=== PATIENT | female | born 1980 | race Caucasian/White ===

== ENCOUNTER 2018-08-05 09:20 | Day surgery (SDC) | payer BC, OTHER ==
--- NOTE | 2018-08-05 06:29 | PDGENHP ---
History and Physical - Chief Complaint RIGHT HIP PAIN - History of Present Illness Diagnosis: 1. Bilateral~Femoroacetabular impingement (CLEMENTE) Cam type~ 2. ~~Bilateral GT bursitis 3. 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 ~Juanaenjoys cycling, snowboarding, hiking, walking her dogs. Erica's~right~hip pain started August 2017, with~no~recalled trauma or injury ~(but did have sharp pain while walking down stairs that resolved within 24 hrs) , and with~no~previous complaints.~Juanadoes not have~a known history of hip dysplasia. Presentation today is of~anterior~right~hip pain deep insdie, occasionally on the lateral side (30%). ~The hip~does not~wake her~at night and~does not~click and catch on~her. Sitting~can be uncomfortable~for her.~Juanadoes not~ report suffering from lower back pain episodes. Juanahas~participated in physical therapy since March 2018~and~has not~ tried other conservative measures.~Celia~has not~received sufficient symptomatic improvement. Juanahas~utilized medication for pain management, including NSAID~and CBD lotion/gummies.~Juanahas used medication consistently for a 2 wk period, but stopped after it gave no improvement. Juanadoes have mild~issues with the~left~hip since May 2018, but not to the level that she would seek care.~~ Juanaunderstands that~celia~has a hip and pelvis problem which should be researched and wishes to get a better understanding of~her~hip status, followed by an establishment of a treatment strategy, hoping~celia~would be able to get back to~her~well being active life. History: Past medical history:~~ None which is relevant~ Relevant familial history:~HTN, HLD Past surgical history:~ No. Surgery Anesthesia Year Outcome 1 Oophrectomy General 2017 Good Juanadenies problematic issues with general anesthesia in the past. I have reviewed, verified and agree with the past medical, surgical, family and social history. Current Medications:~currently has no medications in their medication list. ALLERGIES:~has no allergies on file. Objective: Physical Examination: Juanais 5~feet~2~inches tall and weighs~162~Lbs. Shoe size~7. Juanais AAO x3; she~is well-nourished, in NAD. Skin is warm and dry. ~ Breathing is non-labored. ~CV with RRR by pulse. Abdomen is soft, NTND. Currently,~she~walks with a~normal~gait. Trendelenburg sign is~negative~and proprioception~is normal,~both~sides. She~presents~with no~signs of joint laxity.~Beightons Score:~0 Lower spine examination is~negative~for sciatic or femoral nerve irritation with negative~SLR &~femoral stretch tests. Range of motion of the spine is normal~for flexion, extension, and rotations,~with no~associated pain. Strength, Sensation and pulses are~normal -~bilaterally Ankles and knees exams are~normal~and~no~mal-alignment is evident.~ She~has~no leg length discrepancy. Thigh circumference is~symmetric~with no evidence for muscle atrophy~on both~ sides. Hip ROM (degrees): FL ER At 90~hip FL IR At 90~hip FL AB AD EX IR Neutral hip ER Neutral hip R 100 45 15 40 5 5 45 40 L 95 45 20 35 5 5 45 25 Specific hip and pelvis tests: Impingement Test AIDAN Roll Add. Longus R +++ +++ Negative Negative L Negative ++ Negative Negative Glut. Med ITB Posterior Imp R Negative 5/5 strength Negative 5/5 strength Negative L Negative 5/5 strength Negative 5/5 strength Negative Squeeze test measured~normal Bony Symphysis pubis is~pain free~to touch while concentric activity of the rectus abdominis, does not~produce pain at its insertion. Ilio Psos specific tests are~negative for pain during cycling for~both hips~and remarkable for non painful snap~R side HF has~no pain~both hips. No~capsule tenderness bilaterally Greater trochanteric burse is~minimally painful~on both hips. Piriformis tests: FAIR is~negative,~with no~local signs of neuritis related to sciatic nerve. SIJs examination is~normal~with~normal~AIDAN in relation and local tenderness. Hamstrings tests are~negative~tendinopathy both hips. On a daily basis, the following percentages reflect~Erica's overall total pain: Deep hip~(anterior):~70% Lateral (GT):~30% Imaging: Radiology studies which I~have personally reviewed, analyzed and measured are below: XR: AP of the hip and pelvis: Performed in a~good~technique Coccyx to pubic symphysis distance~1~cm. 0~degrees caudal/cephal [place]~Lines are preserved. Minimal~Pathological signs are seen in the Symphysis Pubis.~ Minimal~Pathological signs are seen at the Ischial~tuberosity. ~ Specific measurements show: NSA~ LCE Sourcil~Angle Sharp's angle Lat. Cam Lat. Pincer C.Over~sign Head~Coverage % ATDmm R 136 30 1 36 Neg Neg Neg 78% 21.0 L 138 33 1 39 Neg Neg Neg 79% 19.6 Pos. wall sign ISS NAD ~~Dysplasia Comments R Negative + 11.4~mm Negative L Negative + 11.2~mm Negative Sclerosis Sup. Lat. OA Cysts Joint Space-WBZ Joint Space-Medial R Negative Negative Negative 2.8~mm 3.0~mm L Negative Negative Negative 3.1~mm 2.8~mm X Table lateral: Anterior cam lesion is~seen~on both hips. Alpha Angle: ~ Right~63~degrees Left~68~degrees MRI shows:~07/01/18 R hip - Good cartilage quality, no significant acetabular cysts or edema, large labral tear Impression and plan:Garrett Maldonado~is a~37 y.o.~active female~suffering from symptomatic~Bilateral~ Femoroacetabular impingement (CLEMENTE) Cam type~(RIGHT symptomatic)~causing significant disability to~her~and altering~her~sport and life activities. Physical examination, imaging, and~her~story correspond with the diagnosis mentioned above. I explained that femoroacetabular impingement (CLEMENTE) arises due to a bony or soft tissue conflict between the femur (ball) and acetabulum (socket) caused by an abnormality in the shape of the hip joint. Over time, repetitive impingement can result in damage to the labrum and adjacent surface cartilage within the socket, ultimately giving rise to progressive osteoarthritis of the hip. I explained that although a labral tear can be a source of pain, it is rarely the root of the problem and typically occurs secondary to an underlying abnormality in the shape and mechanics of the hip joint. ~ I reviewed conservative treatment options for CLEMENTE including activity modification to avoid positions of impingement, physical therapy, non-steroidal anti-inflammatory medications, and various injections (corticosteroid and PRP) aimed at reducing inflammation in the hip joint or/and preventing dynamic impingement. PRP injections may promote healing and reduce symptoms in certain cases but it will not repair chronically damaged tissue. Although these measures may help to buy time and reduce current level of symptoms, they are not a definitive solution to the problem given the underlying abnormality in the shape of the hip joint. Patients who have failed conservative management and continue to experience symptoms are candidates for hip arthroscopy, a minimally invasive surgery that can definitively address the underlying problem. Hip arthroscopy typically includes treating the labrum with either repair or reconstruction of the torn labrum; as well as addressing the underlying abnormalities by restoring the normal shape to the hip joint. ~If the cartilage is damaged a Microfracture~ surgical procedure may also be necessary to help stimulate the growth of fibrocartilage. ~If a patient requires a labral reconstruction or a Microfracture, the initial rehabilitation from the surgery may take longer, but the predatory animal exterminator results are typically favorable. I reviewed the technical aspects of hip arthroscopy including risks, benefits, and expected course of recovery. Erica understands that hip arthroscopy is a minimally invasive outpatient procedure carried out through small incisions on the outer aspect of the hip joint. During surgery, the labral tear will be identified and either repaired or reconstructed using bone anchors and suture material. Additionally, any excessive bone will be removed with a high-speed naz to reshape the hip joint and restore normal anatomy. Risks include infection, bleeding, injury to nearby nerves or vessels, stiffness, persistent pain, instability, venous thromboembolic disease, and traction related complications including temporary foot numbness. Rarely, revision surgery may be required to address these problems. Overall recovery takes approximately 4 8 months depending on the extent of damage and degree of repair. In the event that the labral tissue quality is inadequate for successful repair and healing, Erica understands that a labral reconstruction will be performed. This procedure entails placing a cadaver tissue graft within the hip joint and stabilizing it with bone anchors to build a new labrum. The overall recovery time for labral reconstruction is similar to that of labral repair, although the surgical procedure takes longer to perform. Juanawill review the info presented. In order to obtain more detailed information regarding the alignment, orientation, and shape of the bony hip and pelvis I will order a CT scan to be performed. The results of the CT scan, including femoral torsion and acetabular version measured values and 3D images, will aid me in deciding on the best treatment strategy and surgical pre-planning. Erica will talk with our surgical elastic knitter about possible surgery dates. Juanais happy with this plan. I have also supplied~her~with handouts, outlining the expected surgical treatment and rehab involved. I wish~Juanaall the best, ~~ Cha Salamanca MD History Information - Allergies/Home Medication List Allergies/Adverse Reactions: Sulfa (Sulfonamide Antibiotics) Allergy (Verified 07/24/18 15:24) RASH ALL OVER BODY Home Medications: Claritin 07/24/18 [Last Taken Unknown] Herbals/Supplements -Info Only 07/24/18 [Last Taken Unknown] Ibuprofen 07/24/18 [Last Taken Unknown] Tablet 07/24/18 [Last Taken Unknown] I have personally reviewed and updated: medical history - Social History Smoking Status: Never smoked Review of Systems Review of Systems: Physical Exam Physical Exam:
[2018-08-05] MEDS ORDERED: ACETAMINOPHEN 500 MG TAB PO ONE (09:29)
[2018-08-05] MEDS ORDERED: ceFAZolin 2 GM/DEXTROSE 100 ML IV ONE (09:29)
[2018-08-05] MEDS ORDERED: PREGABALIN 150 MG CAP PO ONE (09:29)
[2018-08-05] MEDS ORDERED: LR 1,000 ML IV ONE (09:30)
[2018-08-05] MEDS ORDERED: BUPIVACAINE 0.25% 30 ML SDV ONE ×2 (10:08→11:22)
[2018-08-05] MEDS ORDERED: EPINEPHrine 30 MG/30 ML MDV (0.1 MG/0.1 ML) ONE (10:08)
--- NOTE | 2018-08-05 11:21 | PDANEPAE ---
ANE Past Medical History - Cardiovascular History Hx Hypertension: No Hx Arrhythmias: No Hx Chest Pain: No Hx Coronary Artery / Peripheral Vascular Disease: No Hx CHF / Valvular Disease: No Hx Palpitations: No Cardiovascular History Comment: PAST ELEV BP - MANAGES W/DIET AND IN NORMAL RANGE - Pulmonary History Hx COPD: No Hx Asthma/Reactive Airway Disease: No Hx Recent Upper Respiratory Infection: No Hx Oxygen in Use at Home: No Hx Sleep Apnea: No Sleep Apnea Screening Result - Last Documented: Negative - Neurologic History Hx Cerebrovascular Accident: No Hx Seizures: No Hx Dementia: No Neurologic History Comment: FAINTED TEEN - DEHYDRATED - Endocrine History Hx Diabetes: No - Renal History Hx Renal Disorders: No - Liver History Hx Hepatic Disorders: No - Neurological & Psychiatric Hx Hx Neurological and Psychiatric Disorders: No - Cancer History Hx Cancer: No - Congenital Disorder History Hx Congenital Disorders: No - GI History Hx Gastrointestinal Disorders: No - Other Health History Other Health History: NEG - Chronic Pain History Chronic Pain: Yes (R HIP) - Surgical History Prior Surgeries: 2017 OOPHERECTOMY ANE Review of Systems Review of Systems: - Exercise capacity METS (RN): 5 METS ANE Patient History - Allergies Allergies/Adverse Reactions: Sulfa (Sulfonamide Antibiotics) Allergy (Verified 07/24/18 15:24) RASH ALL OVER BODY - Home Medications Home Medications: Claritin 07/24/18 [Last Taken 1 Week Ago ~07/29/18] Herbals/Supplements -Info Only 07/24/18 [Last Taken 1 Week Ago ~07/29/18] Ibuprofen 07/24/18 [Last Taken 1 Week Ago ~07/29/18] Tablet 07/24/18 [Last Taken 08/05/18 07:05] - NPO status NPO Since - Liquids (Date): 08/05/18 NPO Since - Liquids (Time): 08:00 NPO Since - Solids (Date): 08/04/18 NPO Since - Solids (Time): 21:00 - Smoking Hx Smoking Status: Never smoked - Family Anes Hx Family Hx Anesthesia Complications: NEG ANE Labs/Vital Signs - Vital Signs Blood Pressure: 145/94 Heart Rate: 102 Respiratory Rate: 18 O2 Sat (%): 98 Height: 157.48 cm Weight: 73.482 kg ANE Physical Exam - Airway Neck exam: FROM Mallampati Score: Class 1 Mouth exam: normal dental/mouth exam - Pulmonary Pulmonary: no respiratory distress - Cardiovascular Cardiovascular: regular rate and rhythym - ASA Status ASA Status: I ANE Anesthesia Plan Anesthesia Plan: general endotracheal anesthesia
[2018-08-05] MEDS ORDERED: fentaNYL 250 MCG/5 ML INJ ONE (12:03)
[2018-08-05] MEDS ORDERED: PROPOFOL 200 MG/20 ML VIAL ONE (12:03)
[2018-08-05] MEDS ORDERED: ROCURONIUM 50 MG/5 ML VIAL ONE (12:06)
[2018-08-05] MEDS ORDERED: DEXAMETHASONE 4 MG/ML VIAL ONE ×2 (12:06)
[2018-08-05] MEDS ORDERED: LIDOCAINE 2% 100 MG/5 ML SYR ONE (12:07)
[2018-08-05] MEDS ORDERED: NEOSTIGMINE METHYLSULFATE 5 MG/5 ML SYR ONE (13:10)
[2018-08-05] MEDS ORDERED: GLYCOPYRROLATE 0.2 MG/1 ML VIAL ONE ×2 (13:10→13:11)
[2018-08-05] MEDS ORDERED: ONDANSETRON 4 MG/2 ML VIAL ONE (13:38)
[2018-08-05] MEDS ORDERED: KETOROLAC 30 MG/1 ML SDV ONE (13:44)
[2018-08-05] MEDS ORDERED: MEPERIDINE 25 MG/0.5 ML AMP IVP PRN (16:12)
[2018-08-05] MEDS ORDERED: HYDROmorphONE/DILAUDID 2 MG/ML INJ IVP PRN (16:12)
[2018-08-05] MEDS ORDERED: fentaNYL 100 MCG/2 ML INJ IVP PRN (16:12)
[2018-08-05] MEDS ORDERED: HYDROCODONE/APAP 5/325 TAB PO PRN (16:12)
[2018-08-05] MEDS ORDERED: NALOXONE HCL 0.4 MG/ML INJ IVP PRN (16:12)
[2018-08-05] MEDS ORDERED: ALBUTEROL 3 ML DEYVIAL IH PRN (16:12)
[2018-08-05] MEDS ORDERED: ONDANSETRON 4 MG/2 ML VIAL IVP PRN (16:12)
[2018-08-05] MEDS ORDERED: oxyCODONE IR 5 MG TAB PO PRN ×2 (16:35)
--- NOTE | 2018-08-05 16:42 | POSTANESTH ---
Post Anesthetic Evaluation Cardiovascular Status: Similar to Pre-Op Cond Respiratory Status: Similar to Pre-op Cond. Level of Consciousness/Mental Status: Mildly Sleepy, Arousable Pain Control: Adequate, Prn Tx Ordered Nausea/Vomiting Control: Adequate, Prn Tx Ordered Complications Possibly Related to Anesthesia: None Noted
[2018-08-05] MEDS ORDERED: fentaNYL 100 MCG/2 ML INJ ONE (16:46)
[2018-08-05] MEDS ORDERED: HYDROmorphONE/DILAUDID 2 MG/ML INJ ONE (16:46)
[2018-08-05] MEDS ORDERED: HYDROCODONE/APAP 5/325 TAB ONE (17:58)
[2018-08-05 18:19] VITALS: BP 140/91
== END 2018-08-05 18:25 | disposition home or self-care (01) ==
LOC: FSGY 09:20
PROVIDERS: ATTEND Orthopaedic Surgery Sports Medicine
PROC: BQ101ZZ Fluoroscopy of Right Hip using Low Osmolar Contrast (ICD-10-PCS; principal; 2018-08-05 11:00)
PROC: 0SQ94ZZ Repair Right Hip Joint, Percutaneous Endoscopic Approach (ICD-10-PCS; principal; 2018-08-05 11:00)
PROC: 0SB94ZZ Excision of Right Hip Joint, Percutaneous Endoscopic Approach (ICD-10-PCS; principal; 2018-08-05 11:00)
DX: M25.851 Other specified joint disorders, right hip (principal); M70.61 Trochanteric bursitis, right hip; M70.62 Trochanteric bursitis, left hip; Z88.2 Allergy status to sulfonamides
CPT/HCPCS: C1713; J0171; J0690; J1100; J1170; J1885; J2001; J2405; J2704; J2710; J3010